=== PATIENT | female | born 2000 | race Caucasian/White ===

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

== ENCOUNTER 2022-10-13 08:31 | Emergency (ER) | payer BC, SELFPAY ==
--- NOTE | 2022-10-13 08:40 | EXP.UTC ---
Discharge Plan Disposition Patient Disposition: Home, Self-Care Condition: Good Prescriptions Prescriptions: New amoxicillin [amoxicillin] 500 mg tablet 500 mg PO TID 10 Days Qty: 30 0RF methylprednisolone 4 mg Tablets,Dose Pack 4 mg PO DIRECTED Qty: 21 0RF cesbtycsphzwhkr-yzudmexik-BB [Bromfed DM] 2-30-10 mg/5 mL Syrup 5 ml PO Q6H PRN (Reason: Cough) Qty: 240 0RF Referrals Follow up/Referrals: Jai Bah MD [Primary Care Provider] - See instructions Activity Restrictions/Add. Instructions Additional Instructions/Restrictions: Drink plenty of fluids. Take tylenol or ibuprofen for pain or fever. Take the medications as directed. Follow up with your regular doctor. GO TO THE ER FOR ANY WORSENING SYMPTOMS Throw your tooth brush away and get a new one. Clinical Impressions Clinical Impression: Strep throat Stand Alone Forms Stand Alone Forms: Work/School Release Instructions Patient Instructions: DI for Strep Throat Discharge ED Provider: Abrahan Garcia [facility] General Stated complaint: runny nose, sore throat,runny nose Time Seen by Provider: 10/13/22 08:40 History of Present Illness Provider Complaint: She states that for the past 2 days she has had sore throat, sinus congestion, fever Related Data Previous Rx's Medication Instructions Recorded amoxicillin 500 mg tablet 500 mg PO TID 10 days #30 tabs 10/13/22 uobxarswojrwxhz-dmyqcqldrixxshy-MW 5 ml PO Q6H PRN Cough #240 mL 10/13/22 2 mg-30 mg-10 mg/5 mL oral syrup (Bromfed DM) methylprednisolone 4 mg tablets in 4 mg PO DIRECTED #21 tabs 10/13/22 a dose pack Allergies Allergy/AdvReac Type Severity Reaction Status Date / Time No Known Allergies Allergy Verified 10/13/22 09:16 [facility] Disclaimer: The information contained in this section may have been updated after the patient was seen, as this information can be updated by other users. Medical History Anxiety Diarrhea Social History Smoking Status: Never smoker second hand exposure: No alcohol intake: never counseling provided: provider counseling substance use type: denies use current occupational status: student Travel in the last 8 weeks: None household members: family housing: house ROS Obtained: Yes All systems reviewed & no additional complaints except as documented Constitutional Constitutional: Reports chills and Reports fever(s) Eyes Eyes: Denies eye discharge ENT Ears, Nose, Mouth, and Throat: Reports as per HPI Cardiovascular Cardiovascular: Denies chest pain Respiratory Respiratory: Denies chest congestion and Reports cough Gastrointestinal Gastrointestingal: Reports nausea; Denies abdominal pain, constipation, cramping, diarrhea or vomiting Musculoskeletal Musculoskeletal: Denies arthralgias Integumentary/Breasts Skin/Breast: Denies rash Neurologic Neurologic: Denies paresthesias Physical Exam General General appearance: alert and in no apparent distress Head Head exam: atraumatic, normocephalic and normal inspection Eye Eye exam: Present normal appearance, PERRL and EOMI ENT ENT exam: Present mucous membranes moist and normal external ear exam Expanded ENT Exam TM/Canal exam: Bilateral TM: erythema and bulging Nose exam: Absent sinus tenderness Mouth exam: Present normal external inspection; Absent drooling Teeth exam: Present normal inspection Throat exam: Present tonsillar erythema, tonsillomegaly and tonsillar exudate Neck Neck exam: Present normal inspection, full ROM and trachea midline; Absent tenderness, meningismus or lymphadenopathy Chest Chest inspection: Present normal inspection and symmetric chest wall rise; Absent tenderness Respiratory Respiratory exam: Present normal lung sounds bilaterally; Absent respiratory distress, wheezes or stridor Cardiovascular Cardiovascu
[2022-10-13 08:45] VITALS: BP 109/72; PULSE 81; RESP 20; TEMP 36.9; O2SAT 99; BMI 18.6
[2022-10-13 09:07] LABS: UTC Influenza A Antigen Negative (Negative)
[2022-10-13 09:08] LABS: UTC Strep Screen (Rapid) Positive (Negative)
[2022-10-13 09:08] LABS: UTC Influenza B Antigen Negative (Negative)
[2022-10-13 09:15] VITALS: BP 109/72; PULSE 81; RESP 20; TEMP 36.9; O2SAT 99
== END 2022-10-13 09:15 | disposition home or self-care (01) ==
PROVIDERS: Emergency Provider Nurse Practitioner Family; PCP Emergency Medicine
DX: J02.0 Streptococcal pharyngitis (principal)
CPT/HCPCS: 87804; 87880; 99212; 99213; C9803; G0463; U0003; U0005

== ENCOUNTER → 2023-06-27 09:45 | Outpatient (CLI) | payer BC, SELFPAY ==
[2023-06-27 10:37] LABS: Basophils # 0.1 K/mm3 (0-0.2); Basophils % 0.7 % (0.1-2.0); Eosinophils # 0.4 K/mm3 (0.0-0.4); Eosinophils % 4.5 % (0.1-12.0); Hematocrit 46.6 % (37.0-47.0); Hemoglobin 16.2 g/dL (12.2-16.2); Lymphocytes # 2.6 K/mm3 (0.7-4.5); Lymphocytes % 29.8 % (10-50); Mean Corpuscular HGB Conc 34.9 g/dL (31.8-35.4); Mean Corpuscular Hemoglobin 31.7 pg (27.0-31.2); Mean Corpuscular Volume 90.9 fl (81-99); Monocytes # 0.6 K/mm3 (0.1-1.0); Monocytes % 6.7 % (1.7-9.3); Neutrophils % 58.3 % (37.0-80.0); Platelet Count 296 K/mm3 (142-424); Red Blood Count 5.12 M/mm3 (4.20-5.40); Red Cell Distribution Width 12.5 % (11.5-17.5); White Blood Count 8.6 K/mm3 (4.5-13.0)
[2023-06-27 11:12] LABS: Anion Gap 17.6 mEq/L (5-15); Blood Urea Nitrogen 17 mg/dl (7-17); Calcium 9.8 mg/dl (8.4-10.2); Carbon Dioxide 25 mmol/L (22.0-30.0); Chloride 102 mmol/L (98-107); Estimated Glomerular Filt Rate 157 ml/min (>60); GFR (African American) 190 ML/MIN (>60); Glucose 102 mg/dl (74-100); Potassium 3.6 mmoL/L (3.5-5.1); Sodium 141 mmol/L (136-145)
[2023-06-27 11:44] LABS: Thyroid Stimulating Hormone 3.04 uIU/mL (0.465-4.68)
== END ==
PROVIDERS: PCP Emergency Medicine; Visit Provider Internal Medicine
DX: R42 Dizziness and giddiness (principal); R00.0 Tachycardia, unspecified; R94.31 Abnormal electrocardiogram [ECG] [EKG]
CPT/HCPCS: 36415; 80048; 82533; 84439; 84443; 85025; 93270

== ENCOUNTER → 2023-07-05 15:12 | Outpatient (CLI) | payer BC, SELFPAY ==
[2023-07-07 09:57] LABS: Sodium, Urine 122 mmol/24 hr (39-258); Sodium, Urine 61 mmol/L (Not Estab.)
== END ==
PROVIDERS: PCP Emergency Medicine; Visit Provider Internal Medicine
DX: R00.0 Tachycardia, unspecified (principal); R42 Dizziness and giddiness; R94.31 Abnormal electrocardiogram [ECG] [EKG]
CPT/HCPCS: 84300

== ENCOUNTER → 2023-07-07 08:51 | Day surgery (SDC) | payer BC, SELFPAY ==
--- NOTE | 2023-07-07 08:53 | CA_ITS ---
APPROVED REPORT EXAM: Comprehensive 2D, Doppler, and color-flow Echocardiogram Shut Off Worker: Allie Aparicio CRT Ht: 5 ft 5 in Wt: 112lbs BSA: 1.55 BP: 126/82 mmHg Indications: Abnormal ECG 2D Dimensions LVOT 1.81 cm (M/F) 1.5-2.5 LA Volume 18.80 mL LA Volume Index 11.90 mL/m2 (M/F) 16-34 M-Mode Dimensions RVDd 1.48 cm (0.9-2.6) LA Diam 2.05 cm (1.9-4.0) LVDd 4.91 cm (3.5-5.7) Ao Diam 3.16 cm (2.0-3.7) LVDs 3.43 cm (3.5-5.7) IVSd 0.72 cm (0.6-1.1) PWd 0.64 cm (0.6-1.1) EF (Teich) 57.20% FS 30.10% EDV (Teich) 113.40 mL TAPSE 1.85 (<1.7) ESV (Teich) 48.50 mL LV Diastology E Decel Time 240.00 (160-240 msec) E/A Ratio 1.57 MED E' 16.60 (< 7 cm/sec) MED A' 6.30 cm/s E'/MED E' Ratio 5.07 (>14) LAT E' 17.10 (<10 cm/sec) LAT A' 6.90 cm/s E/LAT E' Ratio 4.92 (>14) Aortic Valve AO Peak GR. 4.70 mmHg Mitral Valve MV A Velocity 54.00 (40-130 cm/s) E/A Ratio 1.57 MV Decel. Time 240.00 (160-240 ms) Pulmonary Valve PV Peak Velocity 70.00 (50-150 cm/s) Tricuspid Valve TR P. Velocity 235.00 cm/s RAP Estimate 10.00 mmHg RVSP 32.00 mmHg Left Ventricle The left ventricle is normal size. The left ventricular systolic function is normal. The left ventricular ejection fraction is within the normal range. There is normal left ventricular wall thickness. There is normal LV segmental wall motion. The left ventricular diastolic function is normal. LVEF is 55%. Right Ventricle The right ventricle is normal size. The right ventricular systolic function is normal. Atria The left atrium size is normal. The right atrium size is normal. There is no Doppler evidence of interatrial shunt. Aortic Valve The aortic valve opens well. There is no aortic valvular stenosis. No aortic regurgitation is present. Mitral Valve The mitral valve is normal in structure. No evidence of mitral valve stenosis. Mild mitral regurgitation. Tricuspid Valve The tricuspid valve leaflets are thin and pliable. Trace tricuspid regurgitation. There is insufficient TR jet to estimate RVSP. Pulmonic Valve The pulmonary valve is normal in structure. Trace pulmonic regurgitation. Great Vessels The aortic root is normal in size. The ascending aorta is normal in size. IVC is normal in size and collapses >50% with inspiration. Pericardium There is no pericardial effusion. Other Information Study Quality: Adequate Conclusion Normal biventricular systolic function. Mild MR. Electronically signed by : Moni Bustos MD 07/11/2023 21:05:23
[2023-07-07 09:57] VITALS: BP 114/69; PULSE 72; RESP 18; TEMP 37.3; O2SAT 100
--- NOTE | 2023-07-07 10:45 | PC.NURSE ---
1035- pt assessment lungs clear to ascultation, heart rate irregular, abd. normal bowel sounds 4 quadrants
--- NOTE | 2023-07-08 14:16 | EXP.TILT ---
Findings:: PROCEDURE: Tilt Table Test REQUESTING PROVIDER: Simone Bustos MD INDICATION: Tachycardia, dizziness ON BETA BLOCKERS: None PRE-TEST VITAL SIGNS: HR 67 and sinus rhythm, BP 117/70, O2Sats 100% PROCEDURE SUMMARY: Patient was prepped per protocol, IV started, connected to heart, blood pressure and oxygen saturation monitors and safety straps applied. She was then tilted to 70 degrees for a total of 30 minutes. Her only symptoms occurred after approximately 15 to 20 minutes in the upright position, when she noted some mild lightheadedness. Otherwise, she denied any symptoms during the test. Her mild lightheadedness corresponded with her fastest heart rate, 115-117 bpm, while upright. Her slowest HR was 82 bpm, occurring the first minute after being tilted upright. After that, her HR ranged from 93 to 117 bpm. Her fastest heart rates (115-117 bpm) occurred over an approximate 5 minute period, after being upright for approximately 15 to 20 minutes. Her lowest blood pressure was 112/70, occurring after 30 minutes upright. Highest blood pressure was 126/74, occurring after 25 minutes upright. Oxygen saturation remained in the high 90s to 100% throughout. Heart rhythm was sinus throughout. CONCLUSIONS: Findings consistent with Postural Orthostatic Tachycardia Syndrome (POTS)
== END ==
LOC: RT 08:51
PROVIDERS: PCP Emergency Medicine; Visit Provider Internal Medicine
DX: R00.0 Tachycardia, unspecified (principal); R94.31 Abnormal electrocardiogram [ECG] [EKG]; R42 Dizziness and giddiness
CPT/HCPCS: 93306; 93660